=== PATIENT | male | born 1955 | race Caucasian/White ===

== ENCOUNTER → 2023-08-06 06:43 | Outpatient (REF) | payer OTHER, SELFPAY | LOC: RCS 06:43 | PROVIDERS: ATTENDING PHYSICIAN Internal Medicine Cardiovascular Disease; FAMILY PHYSICIAN Internal Medicine | DX: R01.1 Cardiac murmur, unspecified (principal); Z82.49 Family history of ischemic heart disease and other diseases of the circulatory system | CPT/HCPCS: 93306 ==